=== PATIENT | male | born 1960 | race Caucasian/White ===

== ENCOUNTER 2020-08-12 08:10 | Emergency (ER) | payer BC ==
[~2020-08-12] VITALS: Ht 177.8 cm; Wt 145.2 kg
[2020-08-12] MEDS ORDERED: METFORMIN HCL500 M3 PO (08:32)
[2020-08-12] MEDS ORDERED: OZEMPIC0.25 MG/0. SUBQ (08:34)
[2020-08-12] MEDS ORDERED: MIRAPEX0.5 MG PO (08:35)
[2020-08-12] MEDS ORDERED: OZEMPIC1 MG/0.75 SUBQ (08:36)
[2020-08-12] MEDS ORDERED: LEVO-T100 MCG PO (08:36)
[2020-08-12] MEDS ORDERED: ZETIA10 MG PO (08:37)
[2020-08-12] MEDS ORDERED: AMLODIPINE-ATO1 EAC6 PO (08:38)
[2020-08-12] MEDS ORDERED: TENORMIN25 MG PO (08:38)
[2020-08-12] MEDS ORDERED: FLOMAX0.4 MG PO (08:39)
[2020-08-12] MEDS ORDERED: OMEPRAZOLE40 MG PO (08:39)
[2020-08-12] MEDS ORDERED: LISINOPRIL-HCT1 EAC1 PO (08:39)
[2020-08-12 09:42] VITALS: BP 118/73
== END 2020-08-12 09:44 | disposition home or self-care (01) ==
LOC: ER 08:10
DX: S16.1XXA Strain of muscle, fascia and tendon at neck level, initial encounter (principal); S00.03XA Contusion of scalp, initial encounter; I10 Essential (primary) hypertension; I25.10 Atherosclerotic heart disease of native coronary artery without angina pectoris; E11.9 Type 2 diabetes mellitus without complications; Z79.899 Other long term (current) drug therapy; Z88.1 Allergy status to other antibiotic agents; V49.9XXA Car occupant (driver) (passenger) injured in unspecified traffic accident, initial encounter; Y93.89 Activity, other specified; Y92.89 Other specified places as the place of occurrence of the external cause; Y99.8 Other external cause status